=== PATIENT | male | born 1960 | race Caucasian/White ===

== ENCOUNTER 2017-11-17 16:09 | Emergency (ER) | payer OTHER ==
[2017-11-17] MEDS: HYDROCODONE/APAP (5/325) TAB PO (18:15)
[2017-11-17] MEDS: KETOROLAC 60 MG INJ IM (18:15)
== END 2017-11-17 18:34 | disposition home or self-care (01) ==
LOC: FTE 16:09
DX: M54.5 Low back pain (principal)
CPT/HCPCS: 96372; 99284-25

== ENCOUNTER 2018-02-04 05:36 | Day surgery (SDC) | payer OTHER ==
[2018-02-04] MEDS ORDERED: METOCLOPRAMIDE 10 MG INJ (07:00)
[2018-02-04] MEDS ORDERED: LIDOCAINE 2% (SDV) 5 ML INJ (07:00)
[2018-02-04 07:05] LABS: ADD MAN DIFF? NO
[2018-02-04 07:07] LABS: BASOPHILS % 0.4 % (0.0-2.0); EOSINOPHILS # 0.2 10^3/ul (0.0-0.5); EOSINOPHILS % 1.8 % (0.0-7.0); HEMATOCRIT 43.2 % (42.0-52.0); HEMOGLOBIN 14.8 g/dl (14.0-18.0); LYMPHOCYTES # 3.5 10^3/ul (0.8-2.9); LYMPHOCYTES % 34.1 % (15.0-51.0); MEAN CORPUSCULAR HGB CONC 34.3 g/dl (32.0-37.0); MEAN CORPUSCULAR VOLUME 87.6 fl (82.0-101.0); MEAN PLATELET VOLUME 11.2 fl (7.4-10.4); MONOCYTE # 0.7 10^3/ul (0.3-0.9); NEUTROPHIL # 5.8 10^3/ul (1.6-7.5); NEUTROPHILS % 56.5 % (39.0-77.0); PLATELET COUNT 250 10^3/UL (140-415); RED BLOOD COUNT 4.93 10^6/ul (4.70-6.10); RED CELL DISTRIBUTION WIDTH 12.4 % (11.5-14.5)
[2018-02-04 07:07] LABS: WHITE BLOOD COUNT 10.2 10^3/ul (4.8-10.8)
[2018-02-04 07:27] LABS: INR 0.96; PROTIME 12.9 Sec (11.9-14.9)
[2018-02-04 07:28] LABS: ANION GAP 19 (8-16); CARBON DIOXIDE 28 mmol/L (21-31); CHLORIDE 101 mmol/L (97-110); GLUCOSE 240 mg/dl (70-220); PARTIAL THROMBOPLASTIN TIME 30.3 Sec (25.0-35.0); SODIUM 144 mmol/L (135-144)
[2018-02-04 07:29] LABS: BLOOD UREA NITROGEN 14 mg/dl (7-20); CALCIUM 9.4 mg/dl (8.4-10.2); CREATININE 0.79 mg/dl (0.61-1.24); POTASSIUM 4.2 mmol/L (3.5-5.1)
[2018-02-04] MEDS ORDERED: morphine 10 MG INJ (07:51)
[2018-02-04] MEDS ORDERED: MIDAZOLAM 1 MG/ML 2 ML INJ (07:55)
[2018-02-04] MEDS ORDERED: KETOROLAC 30 MG INJ IV (08:00)
[2018-02-04] MEDS ORDERED: OXYCODONE/ACETAMINOPHEN (5/325) TAB PO ×2 (08:00)
[2018-02-04] MEDS ORDERED: FENTAnyl 50 MCG/ML VIAL IV ×3 (08:00)
[2018-02-04] MEDS ORDERED: HYDROmorphONE (0.2 MG/ML) 10ML SYG IV ×2 (08:00)
[2018-02-04] MEDS ORDERED: MEPERIDINE 25 MG INJ IV (08:00)
[2018-02-04] MEDS ORDERED: LABETALOL HCL 20MG INJ IV (08:00)
[2018-02-04] MEDS ORDERED: ALBUTEROL 0.083% (NEB) 2.5 MG/3 ML AMP HHN (08:00)
[2018-02-04] MEDS ORDERED: MIDAZOLAM 1 MG/ML 2 ML INJ IV (08:00)
[2018-02-04] MEDS ORDERED: DIPHENHYDRAMINE 50 MG INJ IV (08:00)
[2018-02-04] MEDS ORDERED: EPHEDrine SULFATE 50 MG/5 ML SYG IV (08:00)
[2018-02-04] MEDS ORDERED: hydrALAzine 20 MG INJ IV (08:00)
[2018-02-04] MEDS ORDERED: PROPOFOL 20 ML (08:17)
[2018-02-04] MEDS ORDERED: DEXAMETHASONE 4 MG/ML 1 ML INJ (08:17)
[2018-02-04] MEDS ORDERED: CEFAZOLIN 1 GM INJ (08:17)
[2018-02-04] MEDS ORDERED: ROCURONIUM 50 MG INJ (08:17)
[2018-02-04] MEDS ORDERED: LABETALOL HCL 20MG INJ (08:17)
[2018-02-04] MEDS: GELATIN SIZE 100 SPONGE (08:31)
[2018-02-04] MEDS: POLYMYXIN/BACITRACIN 1L IRRIG (08:31)
[2018-02-04] MEDS: BUPIVACAINE 0.5% (SDV) 30 ML INJ (08:31)
[2018-02-04] MEDS: THROMBIN 5000 UNIT VIAL (08:31)
[2018-02-04] MEDS: LIDOCAINE 1%/EPI 30 ML INJ (08:31)
[2018-02-04] MEDS ORDERED: THROMBIN 5000 UNIT VIAL (08:35)
[2018-02-04] MEDS ORDERED: SUGAMMADEX SODIUM 200 MG/2 ML VIAL IV (09:59)
[2018-02-04] MEDS: ONDANSETRON 4 MG INJ IV (10:49)
[2018-02-04] MEDS: HYDROmorphONE (0.2 MG/ML) 10ML SYG IV ×2 (10:50→10:57)
== END 2018-02-04 14:35 | disposition home or self-care (01) ==
LOC: SDS 05:36
DX: M51.26 Other intervertebral disc displacement, lumbar region (principal); M48.061 Spinal stenosis, lumbar region without neurogenic claudication; E11.9 Type 2 diabetes mellitus without complications; I10 Essential (primary) hypertension
CPT/HCPCS: 63030; 71045; 72100; 80048; 85025; 85610; 85730; 93005

== ENCOUNTER 2018-09-19 14:52 | Emergency (ER) | payer OTHER ==
[2018-09-19 16:15] LABS: ADD MAN DIFF? NO
[2018-09-19 16:17] LABS: WHITE BLOOD COUNT 13.1 10^3/ul (4.8-10.8)
[2018-09-19 16:17] LABS: BASOPHILS % 0.2 % (0.0-2.0); EOSINOPHILS # 0.2 10^3/ul (0.0-0.5); EOSINOPHILS % 1.3 % (0.0-7.0); HEMATOCRIT 42.8 % (42.0-52.0); HEMOGLOBIN 14.1 g/dl (14.0-18.0); LYMPHOCYTES # 2.9 10^3/ul (0.8-2.9); LYMPHOCYTES % 22.4 % (15.0-51.0); MEAN CORPUSCULAR HEMOGLOBIN 30.5 pg (29.0-33.0); MEAN CORPUSCULAR HGB CONC 32.9 g/dl (32.0-37.0); MEAN CORPUSCULAR VOLUME 92.4 fl (82.0-101.0); MEAN PLATELET VOLUME 11.4 fl (7.4-10.4); MONOCYTE # 0.9 10^3/ul (0.3-0.9); NEUTROPHILS % 68.7 % (39.0-77.0); PLATELET COUNT 217 10^3/UL (140-415); RED BLOOD COUNT 4.63 10^6/ul (4.70-6.10); RED CELL DISTRIBUTION WIDTH 13.1 % (11.5-14.5)
[2018-09-19 16:22] LABS: ANION GAP 9 (5-13); BLOOD UREA NITROGEN 15 mg/dl (7-20); CALCIUM 8.9 mg/dl (8.4-10.2); CARBON DIOXIDE 25 mmol/L (21-31); CHLORIDE 103 mmol/L (97-110); CREATININE 0.99 mg/dl (0.61-1.24); Estimated GFR > 60 mL/min (>60); GLUCOSE 258 mg/dl (70-220); POTASSIUM 4.7 mmol/L (3.5-5.1); SODIUM 137 mmol/L (135-144)
[2018-09-19] MEDS: ONDANSETRON 4 MG INJ IV (16:35)
[2018-09-19] MEDS: VANCOMYCIN 1 GM (PMX) 250 ML IVPB (16:36)
[2018-09-19] MEDS: morphine 4 MG/ML VIAL IV (16:36)
[2018-09-19] MEDS: PIPER-TAZO 3.375 GM IV (PMX) 100 ML IVPB (18:25)
== END 2018-09-19 20:02 | disposition short-term general hospital (02) ==
LOC: FTE 14:52 → E/R 20:02
DX: L03.113 Cellulitis of right upper limb (principal); E11.8 Type 2 diabetes mellitus with unspecified complications; Z79.84 Long term (current) use of oral hypoglycemic drugs; Z87.891 Personal history of nicotine dependence
CPT/HCPCS: 36415; 73130-RT; 76536; 80048; 82962; 85025; 87040; 96374; 96375; 99285-25

== ENCOUNTER 2019-06-11 05:54 | Day surgery (SDC) | payer OTHER ==
[2019-06-11] MEDS ORDERED: PROPOFOL 20 ML (07:46)
[2019-06-11] MEDS ORDERED: MIDAZOLAM 1 MG/ML 2 ML INJ (07:46)
[2019-06-11] MEDS ORDERED: LIDOCAINE 2% (SDV) 5 ML INJ (07:46)
== END 2019-06-11 12:58 | disposition home or self-care (01) ==
LOC: GIL 05:54
DX: Z86.010 Personal history of colon polyps (principal); K64.8 Other hemorrhoids; K57.30 Diverticulosis of large intestine without perforation or abscess without bleeding; E11.9 Type 2 diabetes mellitus without complications; E78.5 Hyperlipidemia, unspecified; Z79.4 Long term (current) use of insulin
CPT/HCPCS: 45378; 82962; 88305

== ENCOUNTER 2019-06-16 19:14 | Inpatient (IN) | payer OTHER ==
[2019-06-16] MEDS: MECLIZINE 12.5 MG TAB PO (20:25)
[2019-06-16 20:29] LABS: URINE BLOOD (Dip) POC Trace-lysed (NEGATIVE); URINE GLUCOSE (Dip) POC Negative (NEGATIVE); URINE KETONES (Dip) POC 1+ (NEGATIVE); URINE LEUKOCYTE EST (Dip) POC Negative (NEGATIVE); URINE NITRITE (Dip) POC Negative (NEGATIVE); URINE TOTAL PROTEIN POC 1+ (NEGATIVE)
[2019-06-16 20:36] LABS: ADD MAN DIFF? NO
[2019-06-16 20:37] LABS: WHITE BLOOD COUNT 11.3 10^3/ul (4.8-10.8)
[2019-06-16 20:37] LABS: BASOPHILS % 0.4 % (0.0-2.0); EOSINOPHILS # 0.1 10^3/ul (0.0-0.5); EOSINOPHILS % 0.8 % (0.0-7.0); HEMATOCRIT 32.4 % (42.0-52.0); HEMOGLOBIN 10.7 g/dl (14.0-18.0); LYMPHOCYTES # 3.1 10^3/ul (0.8-2.9); MEAN CORPUSCULAR HEMOGLOBIN 30.1 pg (29.0-33.0); MEAN CORPUSCULAR VOLUME 91.3 fl (82.0-101.0); MEAN PLATELET VOLUME 11.1 fl (7.4-10.4); MONOCYTE # 0.8 10^3/ul (0.3-0.9); MONOCYTES % 7.3 % (0.0-11.0); NEUTROPHIL # 7.3 10^3/ul (1.6-7.5); NEUTROPHILS % 64.1 % (39.0-77.0); PLATELET COUNT 192 10^3/UL (140-415); RED BLOOD COUNT 3.55 10^6/ul (4.70-6.10); RED CELL DISTRIBUTION WIDTH 13.1 % (11.5-14.5)
[2019-06-16 20:54] LABS: ALANINE AMINOTRANSFERASE 28 IU/L (13-69); ALBUMIN 3.9 g/dl (3.3-4.9); ALBUMIN/GLOBULIN RATIO 1.25; ALKALINE PHOSPHATASE 71 IU/L (42-121); ANION GAP 12 (5-13); ASPARTATE AMINO TRANSFERASE 20 IU/L (15-46); BILIRUBIN,INDIRECT 0.4 mg/dl (0-1.1); BILIRUBIN,TOTAL 0.4 mg/dl (0.2-1.3); BLOOD UREA NITROGEN 36 mg/dl (7-20); CALCIUM 9.5 mg/dl (8.4-10.2); CARBON DIOXIDE 22 mmol/L (21-31); CHLORIDE 105 mmol/L (97-110); CREATININE 0.95 mg/dl (0.61-1.24); Estimated GFR > 60 mL/min (>60); GLUCOSE 163 mg/dl (70-220); LIPASE 169 U/L (23-300); POTASSIUM 4.2 mmol/L (3.5-5.1); SODIUM 139 mmol/L (135-144)
[2019-06-16 21:06] LABS: TROPONIN-I 0.037 ng/ml (0.000-0.120)
[2019-06-16] MEDS: SOD CHLORIDE 0.9% 500 ML IV (23:17)
[2019-06-16] MEDS ORDERED: GLUCOSE GEL 15 GRAM TUBE BUCCAL (23:30)
[2019-06-16] MEDS ORDERED: ONDANSETRON 4 MG INJ IV (23:30)
[2019-06-16] MEDS ORDERED: GLUCAGON 1 MG INJ IM (23:30)
[2019-06-16] MEDS ORDERED: NACL 0.9% 3 ML SYG IV (23:30)
[2019-06-16] MEDS ORDERED: ACETAMINOPHEN 325 MG TAB PO (23:30)
[2019-06-16] MEDS ORDERED: GLUCOSE GEL 15 GRAM TUBE PO ×2 (23:30)
[2019-06-16] MEDS ORDERED: DEXTROSE 50% 50 ML SYRINGE IV ×2 (23:30)
[2019-06-17] MEDS: ACCU-CHEK XX ×2 (02:00→08:31)
[2019-06-17 03:31] LABS: ADD MAN DIFF? NO
[2019-06-17 03:41] LABS: HEMOGLOBIN A1C 7.7 % (0-5.9)
[2019-06-17 03:53] LABS: PROTIME 13.3 Sec (11.9-14.9)
[2019-06-17 03:54] LABS: PARTIAL THROMBOPLASTIN TIME 28.9 Sec (23.0-35.0)
[2019-06-17 03:55] LABS: ALANINE AMINOTRANSFERASE 32 IU/L (13-69); ALBUMIN 3.5 g/dl (3.3-4.9); ALBUMIN/GLOBULIN RATIO 1.16; ALKALINE PHOSPHATASE 69 IU/L (42-121); ANION GAP 7 (5-13); ASPARTATE AMINO TRANSFERASE 20 IU/L (15-46); BILIRUBIN,INDIRECT 0.3 mg/dl (0-1.1); BILIRUBIN,TOTAL 0.3 mg/dl (0.2-1.3); BLOOD UREA NITROGEN 30 mg/dl (7-20); CALCIUM 8.9 mg/dl (8.4-10.2); CARBON DIOXIDE 24 mmol/L (21-31); CHLORIDE 108 mmol/L (97-110); CHOL/HDL RATIO 4.3 RATIO; CHOLESTEROL 99 mg/dl (100-200); CREATININE 0.74 mg/dl (0.61-1.24); Estimated GFR > 60 mL/min (>60); GLUCOSE 149 mg/dl (70-220); HDL CHOLESTEROL 23 mg/dl (30-78); LDL CHOLESTEROL,CALCULATED 38 mg/dl; MAGNESIUM 1.6 mg/dl (1.7-2.5); POTASSIUM 3.7 mmol/L (3.5-5.1); SODIUM 139 mmol/L (135-144); TOTAL PROTEIN 6.5 g/dl (6.1-8.1); TRIGLYCERIDES 189 mg/dl (0-149)
[2019-06-17 04:02] LABS: WHITE BLOOD COUNT 11.4 10^3/ul (4.8-10.8)
[2019-06-17 04:02] LABS: BASOPHILS % 0.3 % (0.0-2.0); EOSINOPHILS # 0.2 10^3/ul (0.0-0.5); EOSINOPHILS % 1.5 % (0.0-7.0); HEMATOCRIT 30.5 % (42.0-52.0); LYMPHOCYTES # 3.6 10^3/ul (0.8-2.9); LYMPHOCYTES % 31.3 % (15.0-51.0); MEAN CORPUSCULAR HEMOGLOBIN 30.3 pg (29.0-33.0); MEAN CORPUSCULAR HGB CONC 32.8 g/dl (32.0-37.0); MEAN CORPUSCULAR VOLUME 92.4 fl (82.0-101.0); MEAN PLATELET VOLUME 11.4 fl (7.4-10.4); MONOCYTE # 0.8 10^3/ul (0.3-0.9); MONOCYTES % 6.8 % (0.0-11.0); NEUTROPHIL # 6.8 10^3/ul (1.6-7.5); NEUTROPHILS % 59.3 % (39.0-77.0); PLATELET COUNT 183 10^3/UL (140-415); RED CELL DISTRIBUTION WIDTH 13.3 % (11.5-14.5)
[2019-06-17] MEDS: MAGNESIUM SULFATE 2 GM/50 ML 50 ML IVPB (06:34)
[2019-06-17] MEDS: PANTOPRAZOLE (EC) 40 MG TAB PO (06:34)
[2019-06-17] MEDS: SUCRALFATE 1 GM TAB PO (06:34)
[2019-06-17 06:52] LABS: ADD MAN DIFF? NO
[2019-06-17 06:56] LABS: BASOPHILS % 0.3 % (0.0-2.0); EOSINOPHILS # 0.1 10^3/ul (0.0-0.5); HEMOGLOBIN 9.5 g/dl (14.0-18.0); LYMPHOCYTES % 34.7 % (15.0-51.0); MEAN CORPUSCULAR HEMOGLOBIN 30.4 pg (29.0-33.0); MEAN CORPUSCULAR HGB CONC 32.8 g/dl (32.0-37.0); MEAN CORPUSCULAR VOLUME 92.7 fl (82.0-101.0); MEAN PLATELET VOLUME 11.2 fl (7.4-10.4); MONOCYTE # 0.8 10^3/ul (0.3-0.9); MONOCYTES % 6.7 % (0.0-11.0); NEUTROPHIL # 6.5 10^3/ul (1.6-7.5); NEUTROPHILS % 57.1 % (39.0-77.0); PLATELET COUNT 183 10^3/UL (140-415); RED BLOOD COUNT 3.13 10^6/ul (4.70-6.10); RED CELL DISTRIBUTION WIDTH 13.3 % (11.5-14.5)
[2019-06-17 06:56] LABS: WHITE BLOOD COUNT 11.4 10^3/ul (4.8-10.8)
[2019-06-17 07:20] LABS: IRON 35 ug/dl (35-150)
[2019-06-17 07:30] LABS: % IRON SATURATION 10 % SAT (22-52); TOTAL IRON BINDING CAPACITY 338 ug/dl (241-421)
[2019-06-17 07:57] LABS: FERRITIN 19.8 ng/ml (11.1-264.0)
[2019-06-17] MEDS: INSULIN ASPART [NOVOLOG] 3 ML PEN SC ×4 (08:14→21:00)
[2019-06-17 14:57] LABS: ADD MAN DIFF? NO
[2019-06-17 14:59] LABS: WHITE BLOOD COUNT 9.7 10^3/ul (4.8-10.8)
[2019-06-17 14:59] LABS: BASOPHILS % 0.3 % (0.0-2.0); EOSINOPHILS # 0.1 10^3/ul (0.0-0.5); EOSINOPHILS % 1.2 % (0.0-7.0); HEMATOCRIT 29.4 % (42.0-52.0); HEMOGLOBIN 9.6 g/dl (14.0-18.0); LYMPHOCYTES # 3.9 10^3/ul (0.8-2.9); LYMPHOCYTES % 40.2 % (15.0-51.0); MEAN CORPUSCULAR HEMOGLOBIN 30.5 pg (29.0-33.0); MEAN CORPUSCULAR HGB CONC 32.7 g/dl (32.0-37.0); MEAN CORPUSCULAR VOLUME 93.3 fl (82.0-101.0); MONOCYTE # 0.7 10^3/ul (0.3-0.9); MONOCYTES % 7.4 % (0.0-11.0); NEUTROPHIL # 4.9 10^3/ul (1.6-7.5); NEUTROPHILS % 50.6 % (39.0-77.0); PLATELET COUNT 182 10^3/UL (140-415); RED BLOOD COUNT 3.15 10^6/ul (4.70-6.10); RED CELL DISTRIBUTION WIDTH 13.3 % (11.5-14.5)
[2019-06-17 21:13] LABS: ADD MAN DIFF? NO
[2019-06-17 21:24] LABS: HEMOGLOBIN 10.2 g/dl (14.0-18.0); MEAN CORPUSCULAR HEMOGLOBIN 30.5 pg (29.0-33.0); MEAN CORPUSCULAR HGB CONC 32.9 g/dl (32.0-37.0); MEAN CORPUSCULAR VOLUME 92.8 fl (82.0-101.0); MEAN PLATELET VOLUME 11.8 fl (7.4-10.4); POSITIVE DIFF @See below; RED BLOOD COUNT 3.34 10^6/ul (4.70-6.10); RED CELL DISTRIBUTION WIDTH 13.2 % (11.5-14.5)
[2019-06-17 21:24] LABS: WHITE BLOOD COUNT 9.3 10^3/ul (4.8-10.8)
[2019-06-17 21:27] LABS: PLATELET COUNT 130 10^3/UL (140-415)
[2019-06-18] MEDS: PANTOPRAZOLE (EC) 40 MG TAB PO (05:55)
[2019-06-18 06:07] LABS: ADD MAN DIFF? NO
[2019-06-18 06:13] LABS: WHITE BLOOD COUNT 9.1 10^3/ul (4.8-10.8)
[2019-06-18 06:13] LABS: BASOPHILS % 0.3 % (0.0-2.0); EOSINOPHILS # 0.2 10^3/ul (0.0-0.5); EOSINOPHILS % 1.8 % (0.0-7.0); HEMATOCRIT 29.9 % (42.0-52.0); HEMOGLOBIN 9.6 g/dl (14.0-18.0); LYMPHOCYTES # 3.6 10^3/ul (0.8-2.9); MEAN CORPUSCULAR HGB CONC 32.1 g/dl (32.0-37.0); MEAN CORPUSCULAR VOLUME 93.4 fl (82.0-101.0); MEAN PLATELET VOLUME 11.2 fl (7.4-10.4); MONOCYTE # 0.7 10^3/ul (0.3-0.9); MONOCYTES % 7.6 % (0.0-11.0); NEUTROPHIL # 4.7 10^3/ul (1.6-7.5); PLATELET COUNT 180 10^3/UL (140-415); RED CELL DISTRIBUTION WIDTH 13.4 % (11.5-14.5)
[2019-06-18 06:43] LABS: ALANINE AMINOTRANSFERASE 41 IU/L (13-69); ALBUMIN 3.6 g/dl (3.3-4.9); ALBUMIN/GLOBULIN RATIO 1.28; ALKALINE PHOSPHATASE 71 IU/L (42-121); ANION GAP 7 (5-13); ASPARTATE AMINO TRANSFERASE 53 IU/L (15-46); BILIRUBIN,INDIRECT 0.5 mg/dl (0-1.1); BILIRUBIN,TOTAL 0.5 mg/dl (0.2-1.3); BLOOD UREA NITROGEN 15 mg/dl (7-20); CALCIUM 8.4 mg/dl (8.4-10.2); CARBON DIOXIDE 25 mmol/L (21-31); CHLORIDE 109 mmol/L (97-110); CREATININE 0.74 mg/dl (0.61-1.24); Estimated GFR > 60 mL/min (>60); GLUCOSE 128 mg/dl (70-220); SODIUM 141 mmol/L (135-144); TOTAL PROTEIN 6.4 g/dl (6.1-8.1)
[2019-06-18 06:44] LABS: PHOSPHORUS 3.4 mg/dl (2.5-4.9)
[2019-06-18 06:44] LABS: MAGNESIUM 2.1 mg/dl (1.7-2.5)
[2019-06-18] MEDS: INSULIN ASPART [NOVOLOG] 3 ML PEN SC ×4 (09:14→20:30)
[2019-06-18] MEDS: PROPOFOL 20 ML (10:27)
[2019-06-18] MEDS: LIDOCAINE 2% (SDV) 5 ML INJ (10:27)
[2019-06-18] MEDS ORDERED: ONDANSETRON 4 MG INJ IV (11:00)
[2019-06-18] MEDS ORDERED: LABETALOL HCL 20MG INJ IV (11:00)
[2019-06-18] MEDS ORDERED: FENTAnyl 50 MCG/ML VIAL IV ×2 (11:00)
[2019-06-19] MEDS: ACCU-CHEK XX (02:00)
[2019-06-19 06:06] LABS: ADD MAN DIFF? NO
[2019-06-19 06:15] LABS: WHITE BLOOD COUNT 9.1 10^3/ul (4.8-10.8)
[2019-06-19 06:15] LABS: BASOPHILS % 0.3 % (0.0-2.0); EOSINOPHILS # 0.2 10^3/ul (0.0-0.5); EOSINOPHILS % 1.9 % (0.0-7.0); HEMATOCRIT 28.9 % (42.0-52.0); HEMOGLOBIN 9.3 g/dl (14.0-18.0); LYMPHOCYTES # 3.3 10^3/ul (0.8-2.9); LYMPHOCYTES % 36.3 % (15.0-51.0); MEAN CORPUSCULAR HEMOGLOBIN 30.1 pg (29.0-33.0); MEAN CORPUSCULAR HGB CONC 32.2 g/dl (32.0-37.0); MEAN CORPUSCULAR VOLUME 93.5 fl (82.0-101.0); MEAN PLATELET VOLUME 11.2 fl (7.4-10.4); MONOCYTE # 0.7 10^3/ul (0.3-0.9); MONOCYTES % 7.8 % (0.0-11.0); NEUTROPHIL # 4.8 10^3/ul (1.6-7.5); NEUTROPHILS % 53.4 % (39.0-77.0); PLATELET COUNT 184 10^3/UL (140-415); RED BLOOD COUNT 3.09 10^6/ul (4.70-6.10); RED CELL DISTRIBUTION WIDTH 13.3 % (11.5-14.5)
[2019-06-19] MEDS: PANTOPRAZOLE (EC) 40 MG TAB PO (06:52)
[2019-06-19 06:58] LABS: PHOSPHORUS 3.7 mg/dl (2.5-4.9)
[2019-06-19 07:15] LABS: ALANINE AMINOTRANSFERASE 46 IU/L (13-69); ALBUMIN 3.6 g/dl (3.3-4.9); ALBUMIN/GLOBULIN RATIO 1.33; ALKALINE PHOSPHATASE 69 IU/L (42-121); ANION GAP 7 (5-13); ASPARTATE AMINO TRANSFERASE 38 IU/L (15-46); BILIRUBIN,INDIRECT 0.3 mg/dl (0-1.1); BILIRUBIN,TOTAL 0.3 mg/dl (0.2-1.3); BLOOD UREA NITROGEN 17 mg/dl (7-20); CALCIUM 8.7 mg/dl (8.4-10.2); CARBON DIOXIDE 26 mmol/L (21-31); CHLORIDE 108 mmol/L (97-110); CREATININE 0.82 mg/dl (0.61-1.24); Estimated GFR > 60 mL/min (>60); GLUCOSE 171 mg/dl (70-220); POTASSIUM 4.1 mmol/L (3.5-5.1); SODIUM 141 mmol/L (135-144); TOTAL PROTEIN 6.3 g/dl (6.1-8.1)
[2019-06-19] MEDS: INSULIN ASPART [NOVOLOG] 3 ML PEN SC ×2 (08:22→12:23)
== END 2019-06-19 17:12 | disposition home or self-care (01) | DRG 378 ==
LOC: PP2 22:59 → E/R 19:14
PROC: 0DB58ZX Excision of Esophagus, Via Natural or Artificial Opening Endoscopic, Diagnostic (ICD-10-PCS; principal; 2019-06-18 10:38)
PROC: 0DB68ZX Excision of Stomach, Via Natural or Artificial Opening Endoscopic, Diagnostic (ICD-10-PCS; 2019-06-18 10:38)
DX: K29.71 Gastritis, unspecified, with bleeding (principal); D62 Acute posthemorrhagic anemia; K22.11 Ulcer of esophagus with bleeding; E11.9 Type 2 diabetes mellitus without complications; E78.5 Hyperlipidemia, unspecified
CPT/HCPCS: 36415; 70450; 71045; 74018; 80053; 80061; 81003; 82728; 82962; 83036; 83540; 83690; 83735; 84100; 84443; 84484; 85025; 85610; 85730; 86850; 86900; 86901; 88305; 88312; 88313; 93005; 99285-25